=== PATIENT | female | born 1995 | race African-American/Black ===

== ENCOUNTER 2019-07-20 21:09 | Emergency (ER) | payer SELFPAY ==
[~2019-07-20] VITALS: Ht 165.1 cm; Wt 72.7 kg
[2019-07-20 21:13] VITALS: BP 120/67; TEMP 98.9
[2019-07-20 21:55] LABS: STREP SCREEN NEGATIVE
[2019-07-20] MEDS ORDERED: PREDNISONE20 MG PO (22:24)
[2019-07-20 22:37] VITALS: PULSE 97
== END 2019-07-20 22:37 | disposition home or self-care (01) ==
LOC: COL.ER 21:09
PROVIDERS: Nurse Practitioner
DX: T78.1XXA Other adverse food reactions, not elsewhere classified, initial encounter (principal); R22.1 Localized swelling, mass and lump, neck
CPT/HCPCS: J7512

== ENCOUNTER 2019-09-13 17:44 | Emergency (ER) | payer MEDICAID ==
[~2019-09-13] VITALS: Ht 165.1 cm; Wt 77.3 kg
[~2019-09-13 17:44] MED LIST: PREDNISONE20 MG PO
[2019-09-13 17:55] VITALS: BP 123/66; PULSE 75; TEMP 98
[2019-09-13 18:38] LABS: COLLECTION METHOD CLEAN CATCH
[2019-09-13 18:48] LABS: PH 6 (5-8); SQUAMOUS EPITHELIAL 0-2 /hpf; URINE APPEARANCE Clear; URINE BACTERIA None Seen /hpf; URINE BILIRUBIN Negative (NEGATIVE); URINE BLOOD Negative (NEGATIVE); URINE COLOR Yellow; URINE GLUCOSE Negative (NEGATIVE); URINE KETONE Negative (NEGATIVE); URINE LEUKOCYTE ESTERASE Negative (NEGATIVE); URINE NITRATE Negative (NEGATIVE); URINE PROTEIN(semi-quant) Negative (NEGATIVE); URINE RBC 0-2 /hpf
[2019-09-13 19:02] LABS: BASO % 0.1 % (0.0-2.0); EOS # 0.3 (0.0-0.7); EOS % 3.3 % (0-4.0); GRAN # 4.7 (1.4-6.5); GRAN % 58.7 % (42.2-75.2); HEMATOCRIT 37.5 % (37.0-47.0); LYMPH # 2.2 (1.2-3.4); LYMPH % 27.5 % (20.0-51.0); MEAN CELL VOLUME 78 fl (80.0-100.0); MEAN CORPUSCULAR HEMOGLOBIN 25 pg (27.0-31.0); MEAN CORPUSCULAR HGB CONC 32 g/dl (33.0-37.0); MEAN PLATELET VOLUME 9.9 fl (7.4-10.4); MONO # 0.8 (0.1-0.6); MONO % 9.9 % (1.7-9.3); PLATELET COUNT 215 K/mm3 (130-400); REDCELL DISTRIBUTION WIDTH-CV 15.9 % (11.5-14.5)
== END 2019-09-13 20:07 | disposition home or self-care (01) ==
LOC: COL.ER 17:44
PROVIDERS: Nurse Practitioner
DX: R10.2 Pelvic and perineal pain (principal); F17.210 Nicotine dependence, cigarettes, uncomplicated